=== PATIENT | female | born 1985 | race American Indian/Alaskan Native ===

== ENCOUNTER 2020-02-13 19:27 | Emergency (ER) | payer SELFPAY ==
--- NOTE | 2020-02-13 20:35 | Event Note ---
ED Screening Note ED Screening Note: states she has elevated sugar and BP states she is having N/V and lightheaded no diarrhea no fever BM today no dysuria no cough PMHx DM -novolin R no allergies to meds LNMP: 02/08/2020 This initial assessment/diagnostic orders/clinical plan/treatment(s) is/are subject to change based on patients health status, clinical progression and re- assessment by fellow clinical providers in the ED. Further treatment and workup at subsequent clinical providers discretion. Patient/guardian urged not to elope from the ED as their condition may be serious if not clinically assessed and managed. Initial orders include: labs, UA
[2020-02-13 21:12] LABS: Basophils # (Auto) 0.1 K/mm3 (0.0-0.1); Eosinophils # (Auto) 0.3 K/mm3 (0.0-0.4); Hematocrit 35.7 % (30.3-42.9); Lymphocytes # (Auto) 2.2 K/mm3 (1.2-5.4); Lymphocytes % (Auto) 27.5 % (13.4-35.0); Mean Corpuscular HGB Conc 34 % (30-34); Mean Corpuscular Volume 88 fl (79-97); Monocytes # (Auto) 0.6 K/mm3 (0.0-0.8); Monocytes % (Auto) 7.5 % (0.0-7.3); Platelet Count 274 K/mm3 (140-440); Red Blood Count 4.07 M/mm3 (3.65-5.03); Red Cell Distribution Width 12.8 % (13.2-15.2)
[2020-02-13 21:17] LABS: Alanine Aminotransferase 12 units/L (7-56); Albumin 3.5 g/dL (3.9-5); BUN/Creatinine Ratio 17; Blood Urea Nitrogen 15 mg/dL (7-17); Calcium 9.3 mg/dL (8.4-10.2); Hemolysis Index 4
[2020-02-13 21:20] LABS: Bilirubin,Urine NEG (Negative); Blood,Urine MOD (Negative); Color,Urine Yellow (Yellow); Mucus,Urine FEW /HPF; Urobilinogen,Urine < 2.0 mg/dL (<2.0)
[2020-02-14] MEDS ORDERED: ONDANSETRON 4 MG ODT TAB PO ONE (01:58)
[2020-02-14] MEDS ORDERED: amLODIPine 5 MG TAB PO ONE (01:58)
--- NOTE | 2020-02-14 02:01 | Emergency Department Report ---
ED N/V/D HPI - General Chief complaint: Hyperglycemia Stated complaint: HBP/HIGH SUGAR Time Seen by Provider: 02/13/20 20:32 Source: patient Mode of arrival: Ambulatory Limitations: No Limitations - History of Present Illness Initial comments: 34-year-old female with a past medical history of diabetes since age 18 originally Metformin currently on [id number] Novolin R insulin presents to the hospital with complaints of elevated glucose and blood pressure. Patient states she is not been feeling well for last 2 days. She has been having interm ittent nausea and vomiting with decreased p.o. intake. Yesterday she only had 1 bowl of soup and very little water intake. She was feeling lightheaded. She checks her blood pressure and states it was 146/100. She states for the last several days her blood glucose has been running in the 300s range despite her sliding scale dose insulin. Patient takes [id number] Novolin R 3 times daily AC and takes 4 units for blood glucose in the 300 range. Patient denies a previous history of hypertension. She denies headache, blurry vision chest pain, shortness of breath, abdominal pain, diarrhea, dysuria, or fever. Patient denies previous history of DKA. Patient does not have a primary care doctor - Related Data Previous Rx's Medication Instructions Recorded Last Taken Type Insulin Regular, Human [Novolin R] See Protocol IJ TIDAC #2 vial 02/14/20 Unknown Rx Ondansetron [Zofran Odt] 4 mg PO Q8HR PRN #20 tab.rapdis 02/14/20 Unknown Rx amLODIPine 5 mg PO DAILY #30 tablet 02/14/20 Unknown Rx Allergies Allergy/AdvReac Type Severity Reaction Status Date / Time No Known Allergies Allergy Unverified 02/13/20 19:43 ED Review of Systems ROS: Stated complaint: HBP/HIGH SUGAR Other details as noted in HPI Comment: All other systems reviewed and negative ED Past Medical Hx - Past Medical History Hx Diabetes: Yes Additional medical history: History of elevated cardiac enzymes but negative cardiac during a viral infection (presumed myocarditis based on what patient describes) - Surgical History Past Surgical History?: No - Social History Smoking Status: Never Smoker Substance Use Type: None - Medications Home Medications: Home Medications Medication Instructions Recorded Confirmed Last Taken Type Insulin Regular, Human [Novolin R] See Protocol IJ TIDAC #2 vial 02/14/20 Unknown Rx Ondansetron [Zofran Odt] 4 mg PO Q8HR PRN #20 tab.rapdis 02/14/20 Unknown Rx amLODIPine 5 mg PO DAILY #30 tablet 02/14/20 Unknown Rx ED Physical Exam - General Limitations: No Limitations - Other Other exam information: General: No acute distress Head: Atraumatic Eyes: normal appearance ENT: Moist mucous membranes Neck: Normal appearance, no midline tenderness Chest: Clear to auscultation bilaterally CV: Regular rate and rhythm, mild tachycardia with sitting up in the bed Abdomen: Soft, normal bowel sounds, nontender, nondistended, no rebound or guarding Back: Normal inspection Extremity: Normal inspection, full range of motion Neuro: Alert O x 3, no facial asymmetry, speech clear, no gross motor sensory deficit Psych: Appropriate behavior Skin: No rash ED Course Vital Signs 02/13/20 02/14/20 02/14/20 19:32 01:16 01:18 Temperature 98.5 F Pulse Rate 102 H 96 H Respiratory 17 13 16 Rate Blood Pressure 150/101 158/99 O2 Sat by Pulse 99 98 Oximetry 02/14/20 02/14/20 02/14/20 01:30 02:00 02:30 Temperature Pulse Rate 95 H 95 H 94 H Respiratory 16 16 15 Rate Blood Pressure 151/97 144/94 139/80 O2 Sat by Pulse 100 Oximetry 02/14/20 02/14/20 02:41 02:47 Temperature Pulse Rate 93 H Respiratory 18 Rate Blood Pressure 139/80 O2 Sat by Pulse 99 Oximetry ED Medical Decision Making - Lab Data Result diagrams: 02/13/20 20:42 02/13/20 20:42 Lab Results 02/13/20 02/13/20 02/13/20 Range/Units 19:39 20:42 20:42 WBC 7.9 (4.5-11.0) K/mm3 RBC 4.07 (3.65-5.03) M/mm3 Hgb 12.0 (10.1-14.3) gm/dl Hct 35.7 (30.3-42.9) % MCV 88 (79-97) fl MCH 29 (28-32) pg MCHC 34 (30-34) % RDW 12.8 L (13.2-15.2) % Plt Count 274 (140-440) K/mm3 Lymph % (Auto) 27.5 (13.4-35.0) % Island % (Auto) 7.5 H (0.0-7.3) % Eos % (Auto) 4.0 (0.0-4.3) % Baso % (Auto) 1.0 (0.0-1.8) % Lymph # (Auto) 2.2 (1.2-5.4) K/mm3 Island # (Auto) 0.6 (0.0-0.8) K/mm3 Eos # (Auto) 0.3 (0.0-0.4) K/mm3 Baso # (Auto) 0.1 (0.0-0.1) K/mm3 Seg Neutrophils % 60.0 (40.0-70.0) % Seg Neutrophils # 4.7 (1.8-7.7) K/mm3 VBG pH (7.320-7.420) Sodium 137 (137-145) mmol/L Potassium 3.7 (3.6-5.0) mmol/L Chloride 97.6 L (98-107) mmol/L Carbon Dioxide 31 H (22-30) mmol/L Anion Gap 12 mmol/L BUN 15 (7-17) mg/dL Creatinine 0.9 (0.6-1.2) mg/dL Estimated GFR > 60 ml/min BUN/Creatinine Ratio 17 % Glucose 308 H (65-100) mg/dL POC Glucose 305 H (70-105) mg/dL Calcium 9.3 (8.4-10.2) mg/dL Total Bilirubin 0.30 (0.1-1.2) mg/dL AST 15 (5-40) units/L ALT 12 (7-56) units/L Alkaline Phosphatase 114 (35-129) units/L Total Protein 8.1 (6.3-8.2) g/dL Albumin 3.5 L (3.9-5) g/dL Albumin/Globulin Ratio 0.8 % Lipase 46 (13-60) units/L HCG, Qual (Negative) Urine Color (Yellow) Urine Turbidity (Clear) Urine pH (5.0-7.0) Ur Specific [place] (1.003-1.030) Urine Protein (Negative) mg/dL Urine Glucose (UA) (Negative) mg/dL Urine Ketones (Negative) mg/dL Urine Blood (Negative) Urine Nitrite (Negative) Urine Bilirubin (Negative) Urine Urobilinogen (<2.0) mg/dL Ur Leukocyte Esterase (Negative) Urine WBC (Auto) (0.0-6.0) /HPF Urine RBC (Auto) (0.0-6.0) /HPF U Epithel Cells (Auto) (0-13.0) /HPF Urine Mucus /HPF 02/13/20 02/13/20 02/13/20 Range/Units 20:42 20:52 Unknown WBC (4.5-11.0) K/mm3 RBC (3.65-5.03) M/mm3 Hgb (10.1-14.3) gm/dl Hct (30.3-42.9) % MCV (79-97) fl MCH (28-32) pg MCHC (30-34) % RDW (13.2-15.2) % Plt Count (140-440) K/mm3 Lymph % (Auto) (13.4-35.0) % Island % (Auto) (0.0-7.3) % Eos % (Auto) (0.0-4.3) % Baso % (Auto) (0.0-1.8) % Lymph # (Auto) (1.2-5.4) K/mm3 Island # (Auto) (0.0-0.8) K/mm3 Eos # (Auto) (0.0-0.4) K/mm3 Baso # (Auto) (0.0-0.1) K/mm3 Seg Neutrophils % (40.0-70.0) % Seg Neutrophils # (1.8-7.7) K/mm3 VBG pH 7.368 (7.320-7.420) Sodium (137-145) mmol/L Potassium (3.6-5.0) mmol/L Chloride (98-107) mmol/L Carbon Dioxide (22-30) mmol/L Anion Gap mmol/L BUN (7-17) mg/dL Creatinine (0.6-1.2) mg/dL Estimated GFR ml/min BUN/Creatinine Ratio % Glucose (65-100) mg/dL POC Glucose (70-105) mg/dL Calcium (8.4-10.2) mg/dL Total Bilirubin (0.1-1.2) mg/dL AST (5-40) units/L ALT (7-56) units/L Alkaline Phosphatase (35-129) units/L Total Protein (6.3-8.2) g/dL Albumin (3.9-5) g/dL Albumin/Globulin Ratio % Lipase (13-60) units/L HCG, Qual Negative (Negative) Urine Color Yellow (Yellow) Urine Turbidity Clear (Clear) Urine pH 6.0 (5.0-7.0) Ur Specific [place] 1.014 (1.003-1.030) Urine Protein 100 mg/dl (Negative) mg/dL Urine Glucose (UA) >=500 (Negative) mg/dL Urine Ketones Neg (Negative) mg/dL Urine Blood Mod (Negative) Urine Nitrite Neg (Negative) Urine Bilirubin Neg (Negative) Urine Urobilinogen < 2.0 (<2.0) mg/dL Ur Leukocyte Esterase Neg (Negative) Urine WBC (Auto) 1.0 (0.0-6.0) /HPF Urine RBC (Auto) 3.0 (0.0-6.0) /HPF U Epithel Cells (Auto) 3.0 (0-13.0) /HPF Urine Mucus Few /HPF 02/13/ Range/Units 01:40 WBC (4.5-11.0) K/mm3 RBC (3.65-5.03) M/mm3 Hgb (10.1-14.3) gm/dl Hct (30.3-42.9) % MCV (79-97) fl MCH (28-32) pg MCHC (30-34) % RDW (13.2-15.2) % Plt Count (140-440) K/mm3 Lymph % (Auto) (13.4-35.0) % Island % (Auto) (0.0-7.3) % Eos % (Auto) (0.0-4.3) % Baso % (Auto) (0.0-1.8) % Lymph # (Auto) (1.2-5.4) K/mm3 Island # (Auto) (0.0-0.8) K/mm3 Eos # (Auto) (0.0-0.4) K/mm3 Baso # (Auto) (0.0-0.1) K/mm3 Seg Neutrophils % (40.0-70.0) % Seg Neutrophils # (1.8-7.7) K/mm3 VBG pH (7.320-7.420) Sodium (137-145) mmol/L Potassium (3.6-5.0) mmol/L Chloride (98-107) mmol/L Carbon Dioxide (22-30) mmol/L Anion Gap mmol/L BUN (7-17) mg/dL Creatinine (0.6-1.2) mg/dL Estimated GFR ml/min BUN/Creatinine Ratio % Glucose (65-100) mg/dL POC Glucose 247 H (70-105) mg/dL Calcium (8.4-10.2) mg/dL Total Bilirubin (0.1-1.2) mg/dL AST (5-40) units/L ALT (7-56) units/L Alkaline Phosphatase (35-129) units/L Total Protein (6.3-8.2) g/dL Albumin (3.9-5) g/dL Albumin/Globulin Ratio % Lipase (13-60) units/L HCG, Qual (Negative) Urine Color (Yellow) Urine Turbidity (Clear) Urine pH (5.0-7.0) Ur Specific [place] (1.003-1.030) Urine Protein (Negative) mg/dL Urine Glucose (UA) (Negative) mg/dL Urine Ketones (Negative) mg/dL Urine Blood (Negative) Urine Nitrite (Negative) Urine Bilirubin (Negative) Urine Urobilinogen (<2.0) mg/dL Ur Leukocyte Esterase (Negative) Urine WBC (Auto) (0.0-6.0) /HPF Urine RBC (Auto) (0.0-6.0) /HPF U Epithel Cells (Auto) (0-13.0) /HPF Urine Mucus /HPF - Medical Decision Making Patient presents to the hospital with intermittent nausea vomiting for the past 2 days decreased p.o. intake. She reports her blood glucose has been running in the 300s range and her blood pressure was elevated prior to arrival. Blood pressure is mildly elevated in the ED she does not endorse any symptoms of hypertensive emergency has a normal creatinine. Patient states she did not have any insulin today due to decreased p.o. intake. Glucose is at the 2 is 247 at time of my evaluation. Patient does not have laboratory findings suggestive of DKA or infection. I suspect that patient has dehydration given heart rate increases with sitting in bed. Patient was also ordered IV hydration in addition to meds. She prefers oral meds and prefers to orally hydrate. She was provided Zofran 4 mg ODT and Norvasc 5 mg initiated for hypertension. Pt tolerating po intake prior to d/c. Patient will be discharged on a increased sliding scale dosage, Zofran, and Norvasc and encouraged to follow-up with a primary care doctor for further management Critical Care Time: No Critical care attestation.: If time is entered above; I have spent that time in minutes in the direct care of this critically ill patient, excluding procedure time. ED Disposition Clinical Impression: Uncontrolled diabetes mellitus with hyperglycemia, Hypertension, Nausea and vomiting, Dehydration Disposition: TO HOME OR SELFCARE Is pt being admited?: No Does the pt Need Aspirin: No Condition: Stable Instructions: Insulin Treatment for Diabetes Mellitus, Nausea and Vomiting, Adult, Managing Your Hypertension, Diabetes Mellitus Type 2 in Adults (ED), Hypertension (ED) Additional Instructions: Take the medication as prescribed. Follow-up with your doctor or doctor/clinic provided. Return if symptoms worsen as indicated by your discharge instructions. Prescriptions: amLODIPine 5 mg PO DAILY #30 tablet Insulin Regular, Human [Novolin R] See Protocol IJ TIDAC #2 vial Ondansetron [Zofran Odt] 4 mg PO Q8HR PRN #20 tab.rapdis PRN Reason: Nausea And Vomiting Referrals: JERMAINE OLVERA MD [Primary Care Provider] - 3-5 Days [facility] [Provider Group] - 3-5 Days HUNTER SCHILLING MD [Staff Physician] - 3-5 Days Time of Disposition: 03:17
[2020-02-14 04:05] VITALS: BP 133/94
== END 2020-02-14 04:35 | disposition home or self-care (01) ==
LOC: ED 19:27
DX: E11.65 Type 2 diabetes mellitus with hyperglycemia (principal); E86.0 Dehydration
CPT/HCPCS: 36415; 80053; 81001; 82805; 82962; 83690; 84703; 85025; 99283; Q0162